=== PATIENT | male | born 1965 | race Caucasian/White ===

== ENCOUNTER 2017-07-05 13:29 | Emergency (ER) | payer BC, SELFPAY ==
[2017-07-05 13:29] VITALS: BP 145/78; PULSE 79; RESP 16; TEMP 36.6; O2SAT 97; BMI 29.0
[2017-07-05 15:02] VITALS: BP 115/84; PULSE 76; RESP 16; O2SAT 96
[2017-07-05] MEDS: proCHLORPERazine 10 MG/2 ML Vial IV (15:45)
[2017-07-05] MEDS: DiphenhydrAMINE 50 MG/ML Syringe 25 MG IV (15:45)
--- NOTE | 2017-07-05 15:51 | ED.DEP ---
ED Disposition - Plan for ED Patient: Chief Complaint: Headache Instructions: ED Cephalgia Unspecified Referrals: Care Physician,No Primary [Primary Care Provider] - Grayson Kirk DO [STAFF PHYSICIAN] -
--- NOTE | 2017-07-05 15:52 | ED.VISSUMM ---
- ER Visit Summary Date of Service: 07/05/17 Chief Complaint: Headache History of Present Illness: The patient is a 52 M presenting with headache x 5 days. He states the headache was gradual in onset. He has nausea without vomiting. Denies fever. Denies neck pain. Patient states he had a head injury in December and has had intermittent headaches since that time. He states he had a CT scan in December in [place] after the injury. He states he takes ibuprofen and tylenol at home. He does not currently have a primary care physician. Physical Examination: Vitals are stable. Patient is afebrile. Alert in no acute distress HEENT: unremarkable. moist mucous membranes NECK: supple, no meningismus HEART: regular rate and rhythm LUNGS: clear to auscultation bilaterally ABDOMEN: soft and nontender SKIN: warm and dry NEURO: no focal neuro deficits. Remainder of the exam is unremarkable. Emergency Department Course and Treatment: Patient was given Compazine and benadryl IV with improvement. He is advised to follow up with Dr Kirk solar sales consultant for no doc. Advised to return to the ED for worsening complaints. Disposition: Discharge home Impression: Headache This note was generated with [employer] dictation software. It may contain incorrect words, spelling, and punctuation that were not noted in review of the chart prior to signing ED Disposition - Plan for ED Patient: Chief Complaint: Headache Instructions: ED Cephalgia Unspecified Referrals: Grayson Kirk DO [STAFF PHYSICIAN] - Care Physician,No Primary [Primary Care Provider] -
--- NOTE | 2017-07-05 15:57 | ED.DCSUM_ITS ---
- ER Visit Summary Date of Service: 07/05/17 Chief Complaint: Headache History of Present Illness: The patient is a 52 M presenting with headache x 5 days. He states the headache was gradual in onset. He has nausea without vomiting. Denies fever. Denies neck pain. Patient states he had a head injury in December and has had intermittent headaches since that time. He states he had a CT scan in December in [place] after the injury. He states he takes ibuprofen and tylenol at home. He does not currently have a primary care physician. Physical Examination: Vitals are stable. Patient is afebrile. Alert in no acute distress HEENT: unremarkable. moist mucous membranes NECK: supple, no meningismus HEART: regular rate and rhythm LUNGS: clear to auscultation bilaterally ABDOMEN: soft and nontender SKIN: warm and dry NEURO: no focal neuro deficits. Remainder of the exam is unremarkable. Emergency Department Course and Treatment: Patient was given Compazine and benadryl IV with improvement. He is advised to follow up with Dr Kirk vocational technical education teacher for no doc. Advised to return to the ED for worsening complaints. Disposition: Discharge home Impression: Headache This note was generated with [employer] dictation software. It may contain incorrect words, spelling, and punctuation that were not noted in review of the chart prior to signing ED Disposition - Plan for ED Patient: Chief Complaint: Headache Instructions: ED Cephalgia Unspecified Referrals: Grayson Kirk DO [STAFF PHYSICIAN] - Care Physician,No Primary [Primary Care Provider] -
[2017-07-05 16:43] VITALS: BP 129/77; PULSE 64; RESP 15; O2SAT 98
== END 2017-07-05 16:44 | disposition home or self-care (01) ==
PROVIDERS: Emergency Provider Emergency Medicine
DX: R51 Headache (principal); R11.0 Nausea; Z87.442 Personal history of urinary calculi; Z72.0 Tobacco use
CPT/HCPCS: 96374; 96375; 99283; A4216